=== PATIENT | female | born 2000 | race Caucasian/White ===

== ENCOUNTER 2025-05-30 14:55 | Emergency (ER) | payer BC ==
[~2025-05-30] VITALS: Ht 165.1 cm; Wt 83.9 kg
[2025-05-30 15:11] VITALS: BP 147/94; TEMP 98; O2SAT 98
[2025-05-30] MEDS ORDERED: IBUP-1490 PO (15:59)
== END 2025-05-30 16:04 | disposition home or self-care (01) ==
LOC: ER 14:55
DX: R51.9 Headache, unspecified (principal); R11.2 Nausea with vomiting, unspecified; F41.9 Anxiety disorder, unspecified; H53.2 Diplopia; Z88.0 Allergy status to penicillin; Z88.2 Allergy status to sulfonamides

== ENCOUNTER 2025-06-03 19:20 | Emergency (ER) | payer BC ==
[~2025-06-03] VITALS: Ht 165.1 cm; Wt 83.9 kg
[~2025-06-03 19:20] MED LIST: IBUP-1490 PO
[2025-06-03] MEDS ORDERED: LORAZEPAM INJ 2 MG/ML VIAL ONE (20:02)
[2025-06-03] MEDS: LORAZEPAM INJ 2 MG/ML VIAL IV ONE (20:13)
[2025-06-03] MEDS: IV NS 0.9% 1,000 ML BAG IV ONE (20:13)
[2025-06-03 20:26] LABS: PLATELET COUNT (AUTO) 298 K/uL (150-450); RED BLOOD CELL COUNT(AUTO) 4.71 MIL/uL (4.0-5.2); RED CELL DISTRIBUTION WIDTH 13.0 % (11.5-15.0); WHITE BLOOD COUNT (AUTO) 8.1 K/uL (4.3-11.0)
[2025-06-03 20:33] LABS: CALCIUM, SERUM 9.5 mg/dL (8.5-10.1); CREATININE 0.7 mg/dL (0.6-1.3); SODIUM SERUM 138.0 mmol/L (136-145); UREA NITROGEN, BLOOD 11.0 mg/dL (7-18)
[2025-06-03 21:02] VITALS: BP 111/60; TEMP 98.4
[2025-06-03 21:20] VITALS: O2SAT 100
== END 2025-06-03 21:20 | disposition home or self-care (01) ==
LOC: ER 19:29
DX: R00.2 Palpitations (principal); F41.9 Anxiety disorder, unspecified; R10.2 Pelvic and perineal pain; Z88.0 Allergy status to penicillin; Z88.2 Allergy status to sulfonamides
CPT/HCPCS: 99284; 96374; 96361; 93005; 85025; 80048; 36415; 84702; J2060; J7030